=== PATIENT | female | born 1970 | race Caucasian/White ===

== ENCOUNTER 2017-07-26 18:16 | Emergency (ER) | payer MEDICAID ==
[~2017-07-26] VITALS: Ht 175.3 cm; Wt 99.5 kg
[2017-07-26 19:22] VITALS: BP 140/90
[2017-07-26 20:20] VITALS: BP 140/90
--- NOTE | 2017-07-26 20:20 | NUR ---
PATIENT PRESENTS TO ED WITH FOR WOUND CHECK LACERATION ON HER TONGUE, SUTURED DONE BY DR. TREJO , 07.22.2017 PT DENIES N/V/D; SKIN IS PINK/WARM/DRY; AAOX4 WITH EVEN AND STEADY GAIT; LUNGS CLEAR BL; HR EVEN AND REGULAR; PT DENIES ANY FEVER, CP, SOB, OR COUGH AT THIS TIME; PATIENT STATES PAIN OF 0/10 AT THIS TIME; VSS; PATIENT POSITIONED FOR COMFORT; HOB ELEVATED; BEDRAILS UP X2; BED DOWN. ER MD MADE AWARE OF PT STATUS.
--- NOTE | 2017-07-26 20:41 | NUR ---
Patient discharged with v/s stable. Written and verbal after care instructions given and explained. Patient verbalized understanding. Ambulatory with steady gait. All questions addressed prior to discharge. Advised to follow up with PMD.
== END 2017-07-26 20:41 | disposition home or self-care (01) ==
LOC: MED 18:16
DX: S01.512D Laceration without foreign body of oral cavity, subsequent encounter (principal); X58.XXXD Exposure to other specified factors, subsequent encounter; R03.0 Elevated blood-pressure reading, without diagnosis of hypertension
CPT/HCPCS: 99281